=== PATIENT | female | born 1985 | race Caucasian/White ===

== ENCOUNTER 2016-12-08 14:49 | Observation (INO) | payer OTHER ==
[~2016-12-08] VITALS: Ht 170.2 cm; Wt 133.9 kg
[~2016-12-08 14:49] MED LIST: ADVIL,NUPRIN,M200 MG PO; CYTOMEL5 MCG PO; FLEXERIL5 MG PO; GABAPENTIN100 MG PO; LEVOTHYROXINE75 MCG PO; LEXAPRO20 MG PO; MACROBID100 MG PO; NAPROSYN500 MG PO; PREDNISONE10 M1 PO; TOPAMAX100 MG PO; TRAMADOL HCL50 MG PO; ULTRAM50 MG PO; VALACYCLOVIR1000 MG PO; VYVANSE40 MG PO
[2016-12-08 15:29] LABS: POINT-OF-CARE METER ID UU13113702
[2016-12-08 15:38] LABS: EOSINOPHIL (%) 1.2 % (0-5); EOSINOPHIL COUNT 0.1 K/uL (0-0.3); HEMATOCRIT 40.9 % (36.0-46.0); IMMATURE GRANULOCYTE (%) 0.1 % (0.0-0.7); INSTRUMENT ABS NEUTROPHIL CT 4.9 K/uL; LYMPHOCYTE COUNT 1.9 K/uL (1.0-2.8); MCH 30.7 PG (29.0-34.0); MCHC 33.7 G/DL (30.0-36.0); MCV 91.1 FL (83-99); MONOCYTE (%) 6.9 % (3-12); MONOCYTE COUNT 0.5 K/uL (0-0.8); NEUTROPHIL (%) 65.5 % (45-76); NEUTROPHIL COUNT 4.9 K/uL (1.8-6.4); PLATELET COUNT 159 K/uL (156-360); RBC DIS.WIDTH-CV 13.2 % (11.8-14.6); RBC DIS.WIDTH-SD 44.1 % (39-53); RED BLOOD COUNT 4.49 M/uL (3.80-5.20); WHITE BLOOD COUNT 7.4 K/uL (4.1-10.2)
[2016-12-08 15:49] LABS: CHLORIDE 104 mEq/L (99-109); POTASSIUM 3.8 mEq/L (3.7-5.4); SODIUM 137 mEq/L (136-147)
[2016-12-08 15:51] LABS: GLUCOSE 131 mg/dL (70-99)
[2016-12-08 15:52] LABS: ANION GAP 10 MEQ/L (2-14)
[2016-12-08 15:53] LABS: TOTAL BILIRUBIN 0.5 mg/dL (0.0-1.0)
[2016-12-08 15:54] LABS: ALKALINE PHOSPHATASE 62 IU/L (3-129)
[2016-12-08 15:55] LABS: GFR ESTIMATE (CALCULATED) > 59 mL/min/
[2016-12-08 15:56] LABS: UREA NITROGEN (BUN) 11 mg/dL (9-23)
[2016-12-08 15:58] LABS: LIPASE 29 U/L (1.0-51.0)
[2016-12-08 16:04] LABS: TROP-I INTERPRETATION NEGATIVE; TROPONIN-I < 0.01 ng/mL (0.0-0.30)
[2016-12-08 16:05] LABS: QUANTITATIVE HCG < 4.0 MIU/ML
[2016-12-08 16:44] LABS: D-DIMER ELISA < 150.00 ng/mLDDU (<230)
[2016-12-08 17:40] LABS: ADD MIUA? NO; BILIRUBIN NEGATIVE; BLOOD NEGATIVE; COLOR YELLOW ((YELLOW)); GLUCOSE (STRIP) NEGATIVE; KETONES NEGATIVE; LEUKOCYTES NEGATIVE; NITRITE NEGATIVE; PROTEIN (STRIP) NEGATIVE; SPECIFIC GRAVITY 1.011 (1.000-1.030); UROBILINOGEN 0.2 MG/DL (0.2-1.0)
[2016-12-08 21:01] VITALS: BP 104/55
[2016-12-08 21:01] LABS: TROP-I INTERPRETATION NEGATIVE; TROPONIN-I < 0.01 ng/mL (0.0-0.30)
[2016-12-08 21:55] VITALS: BP 129/69
[2016-12-08 23:25] VITALS: BP 112/67
[2016-12-09 02:25] LABS: METH RESISTANT S AUREUS PCR NEGATIVE (NEGATIVE)
[2016-12-09 02:31] LABS: PROBE CHECK PASS; SPECIMEN PROCESSING CONTROL PASS
[2016-12-09 03:00] VITALS: BP 130/58
[2016-12-09 04:51] LABS: HEMATOCRIT 36.1 % (36.0-46.0); MCH 30.6 PG (29.0-34.0); MCV 92.8 FL (83-99); MEAN PLAT.VOLUME 11.2 uM^3 (9.5-12.4); PLATELET COUNT 131 K/uL (156-360); RBC DIS.WIDTH-CV 13.3 % (11.8-14.6); RBC DIS.WIDTH-SD 45.2 % (39-53); RED BLOOD COUNT 3.89 M/uL (3.80-5.20)
[2016-12-09 05:00] LABS: CHLORIDE 109 mEq/L (99-109); SODIUM 141 mEq/L (136-147)
[2016-12-09 05:03] LABS: ANION GAP 7 MEQ/L (2-14)
[2016-12-09 05:06] LABS: GFR ESTIMATE (CALCULATED) > 59 mL/min/
[2016-12-09 05:07] LABS: UREA NITROGEN (BUN) 16 mg/dL (9-23)
[2016-12-09 05:09] LABS: GLUCOSE 96 mg/dL (70-99)
[2016-12-09 05:12] LABS: TROP-I INTERPRETATION NEGATIVE; TROPONIN-I < 0.01 ng/mL (0.0-0.30)
[2016-12-09 05:20] LABS: HDL CHOLESTEROL 33 MG/DL (Desirable>=50); LDL CHOLESTEROL 66 mg/dL (Desirable<100); NON-HDL CHOLESTEROL 78 mg/dL (Desirable<160); TOTAL CHOLESTEROL 111 mg/dL (Desirable<200); TRIGLYCERIDES 62 MG/DL (Normal: <150)
[2016-12-09 08:43] VITALS: BP 123/58
[2016-12-09 16:05] VITALS: BP 143/80
== END 2016-12-09 18:23 | disposition home or self-care (01) ==
LOC: EME 14:49 → 5WEST 18:56 → EDOF 18:56 → ENRESERV 18:58 → 5WEST 20:43
PROVIDERS: Emergency Medicine; Hospitalist; Physician Assistant
DX: R55 Syncope and collapse (principal); R00.1 Bradycardia, unspecified; E06.3 Autoimmune thyroiditis; R11.0 Nausea; R07.9 Chest pain, unspecified; F17.210 Nicotine dependence, cigarettes, uncomplicated; Z82.0 Family history of epilepsy and other diseases of the nervous system; G89.29 Other chronic pain; M54.5 Low back pain; F12.90 Cannabis use, unspecified, uncomplicated
CPT/HCPCS: 70450; 70544; 70551; 71020; 80048; 80053; 80061; 81003; 82948; 83690; 84443; 84484; 84702; 85025; 85027; 85379; 87081; 87641; 93005; 93880; 95819; 99281; 99284; G0378; J1650; J1885; J7030

== ENCOUNTER 2017-04-21 09:21 | Emergency (ER) | payer SELFPAY ==
[2017-04-21 09:43] LABS: BASOPHIL (%) 0.4 % (0-1); EOSINOPHIL (%) 2.3 % (0-5); EOSINOPHIL COUNT 0.1 K/uL (0-0.3); HEMATOCRIT 42.2 % (36.0-46.0); HEMOGLOBIN 14.3 G/DL (11.9-15.5); IMMATURE GRANULOCYTE (%) 0.4 % (0.0-0.7); LYMPHOCYTE (%) 33.8 % (15-42); LYMPHOCYTE COUNT 1.9 K/uL (1.0-2.8); MCH 31.2 PG (29.0-34.0); MCHC 33.9 G/DL (30.0-36.0); MCV 91.9 FL (83-99); MONOCYTE (%) 6.8 % (3-12); MONOCYTE COUNT 0.4 K/uL (0-0.8); NEUTROPHIL (%) 56.3 % (45-76); NEUTROPHIL COUNT 3.2 K/uL (1.8-6.4); PLATELET COUNT 141 K/uL (156-360); RBC DIS.WIDTH-CV 12.6 % (11.8-14.6); RBC DIS.WIDTH-SD 42.5 % (39-53); RED BLOOD COUNT 4.59 M/uL (3.80-5.20); WHITE BLOOD COUNT 5.7 K/uL (4.1-10.2)
[2017-04-21 09:53] LABS: AMYLASE 34 IU/L (1-118); CHLORIDE 103 mEq/L (99-109); POTASSIUM 3.8 mEq/L (3.7-5.4); SODIUM 137 mEq/L (136-147)
[2017-04-21 09:55] LABS: GLUCOSE 98 mg/dL (70-99)
[2017-04-21 09:58] LABS: SERUM ETHYL ALCOHOL < 10 mg/dL
[2017-04-21 09:59] LABS: GFR ESTIMATE (CALCULATED) > 59 mL/min/
[2017-04-21 10:00] LABS: UREA NITROGEN (BUN) 14 mg/dL (9-23)
[2017-04-21 10:02] LABS: LIPASE 14 U/L (1.0-51.0)
[2017-04-21 10:07] LABS: QUANTITATIVE HCG < 4.0 MIU/ML
[2017-04-21] MEDS ORDERED: PERCOCET 5/31 TABLET PO (11:20)
[2017-04-21] MEDS ORDERED: SILVADENE20 GM TP (11:20)
== END 2017-04-21 13:50 | disposition home or self-care (01) ==
LOC: TRA 09:21
PROVIDERS: Emergency Medicine
DX: S20.222A Contusion of left back wall of thorax, initial encounter (principal); S90.32XA Contusion of left foot, initial encounter; T21.13XA Burn of first degree of upper back, initial encounter; T31.0 Burns involving less than 10% of body surface; V09.9XXA Pedestrian injured in unspecified transport accident, initial encounter; S80.212A Abrasion, left knee, initial encounter; M54.6 Pain in thoracic spine; M25.521 Pain in right elbow; Z88.5 Allergy status to narcotic agent
CPT/HCPCS: 70450; 71260; 72125; 72129; 72132; 73030; 73080; 73560; 73590; 73610; 73630; 74177; 80048; 81003; 82150; 83690; 84702; 85025; 86850; 86900; 86901; 99281; 99285; G0480